=== PATIENT | female | born 1965 | race Caucasian/White ===

== ENCOUNTER 2017-01-21 13:00 | Day surgery (SDC) | payer BC ==
[~2017-01-21] VITALS: Ht 172.7 cm; Wt 63.7 kg
[2017-01-21] MEDS ORDERED: ATOR40TA68 PO (14:24)
[2017-01-21] MEDS ORDERED: ESTR1.2510 PO (14:25)
[2017-01-21] MEDS ORDERED: VENL75TA PO (14:25)
[2017-01-21] MEDS ORDERED: ALBU18HF INHALATION (14:26)
[2017-01-21] MEDS ORDERED: TOPI25CA2 PO (14:26)
[2017-01-21] MEDS ORDERED: ALBU8.5H3 INH (14:26)
[2017-01-21] MEDS ORDERED: LEVO125T75 PO (14:26)
[2017-01-21] MEDS ORDERED: VALA500T PO (14:26)
[2017-01-21 14:29] VITALS: Ht 172.7 cm; Wt 63.7 kg
[2017-01-21 16:48] VITALS: BP 126/76; PULSE 66; RESP 10
[2017-01-21] MEDS ORDERED: LIDOCAINE 2% (SDV) 5 ML INJ ONE (16:49)
[2017-01-21] MEDS ORDERED: PROPOFOL 40 ML ONE (16:49)
[2017-01-21] MEDS ORDERED: MIDAZOLAM 1 MG/ML 2 ML INJ ONE (17:12)
[2017-01-21 17:40] VITALS: BP 116/73; PULSE 77; RESP 10
--- NOTE | 2017-01-24 07:53 | GILP ---
DATE OF PROCEDURE: 01/21/2017 NAME OF PROCEDURE: Colonoscopy with snare polypectomy and colonoscopy with polyp ablation. SURGEON: Unique Crenshaw MD. HISTORY AND INDICATIONS: Patient is here for colorectal cancer screening. PREMEDICATION: Monitored anesthesia care by anesthesiologist. INSTRUMENT USED: Olympus colonoscope. PREPARATION: Findings. TECHNIQUE: After informed consent, with the patient/relatives understanding the procedure, its indic ations potential risks and complications, including but not limited to: allergic reaction, bleeding, perforation, infection, missed lesions and after all pertinent questions were answered to the patie nt's satisfaction, the patient/relatives signed the witnessed informed consent. Following this, premedication was administered slowly IV push by under careful cardiovascular and re spiratory monitoring with pulse oximetry, automatic blood pressure and satellite project site monitor. Once the sedativ e effect was achieved, the patient was placed in the left lateral decubitus position, digital rectal examination was performed. The colonoscope was then introduced and advanced under visual control th roughout all segments of the colon including: the rectum, sigmoid, descending colon, splenic flexure , transverse colon, hepatic flexure, ascending colon and finally reaching the cecum which was clearl y identified by transillumination, finger indentation and the ileocecal valve. Careful examination o f the mucosa of the lower gastrointestinal tract both on insertion as well as withdrawal of the inst rument disclosed the following findings: Rectal Examination: No evidence of perirectal disease, no masses. Colonic Mucosa: The colonic mucosa is remarkable for a 3 mm polyp in the rectum which was ablated. An 8 mm polyp also in the rectum was snared and retrieved. Then, an 8 mm polyp was noted in the si gmoid colon, was snared and retrieved and a 3 mm polyp was noted in the descending colon and was abl ated. The remainder of the colonic mucosa unremarkable. The ileocecal valve was clearly identified and appears unremarkable. The instrument was withdrawn, reexamining the mucosa in detail. No stuart tional abnormalities are noted with exception of moderate sized internal hemorrhoids. IMPRESSION: 1. ____ polyp in the rectum ablated. 2. An 8 mm polyp in the rectum snared and retrieved. 3. An 8 mm polyp in the sigmoid colon, snared and retrieved. 4. A 3 mm polyp in the descending colon ablated. 3. Moderate size internal hemorrhoids. PLAN: Pathology will be reviewed as soon as available. Further recommendation will depend on the p atient's clinical course as well as review of biopsies. Annual Hemoccult stool testing is recommend ed and surveillance colonoscopy in 3 years is recommended. Dictated By: UNIQUE CRENSHAW MS/WALLACE Conf#: [id number] DID#: [id number] CC: UNIQUE CRENSHAW;*EndCC*
== END 2017-01-21 17:54 | disposition home or self-care (01) ==
LOC: GIL 13:00
PROVIDERS: ATTEND Internal Medicine Gastroenterology
DX: Z12.11 Encounter for screening for malignant neoplasm of colon (principal); D12.4 Benign neoplasm of descending colon; K64.8 Other hemorrhoids; E03.9 Hypothyroidism, unspecified; E78.5 Hyperlipidemia, unspecified; J45.909 Unspecified asthma, uncomplicated
CPT/HCPCS: 45380; 88305; J2250